=== PATIENT | male | born 1955 | race African-American/Black ===

== ENCOUNTER 2021-11-30 07:22 | Inpatient (IN) | payer MEDICARE, MEDICAID ==
[~2021-11-30] VITALS: Ht 175.3 cm; Wt 56.7 kg
[2021-11-30 09:11] LABS: BASOPHILS % 0.5 % (0.0-2.0); EOSINOPHILS % 2.6 % (0.0-5.0); HEMATOCRIT. 33.2 % (42.0-52.0); HEMOGLOBIN. 10.8 g/dL (14.0-18.0); LYMPHOCYTES % 11.5 % (20.0-50.0); MEAN CORPUSCULAR HEMOGLOBIN 26.6 pg (28.0-32.0); MEAN CORPUSCULAR VOLUME 82.1 fL (80.0-94.0); MEAN PLATELET VOLUME 8.2 fl (7.4-10.4); MONOCYTES % 8.9 % (2.0-8.0); NEUTROPHILS % 76.5 % (40.0-76.0); PLATELET 625 x1000/uL (130-400); RED BLOOD CELL COUNT 4.05 mill/uL (4.7-6.1); RED CELL DISTRIBUTION WIDTH 14.8 % (11.6-14.6)
[2021-11-30 09:19] LABS: CHLORIDE 104 mEq/L (98-107)
[2021-11-30] MEDS ORDERED: DILTIAZEM HCL 60MG TABLET PO ONE (10:15)
[2021-11-30] MEDS ORDERED: DILTIAZEM HCL 5MG/ML 5ML VIAL IV ONE (10:15)
[2021-11-30] MEDS ORDERED: SODIUM CHLORIDE 0.9% 1,000 ML IV ONE (10:15)
[2021-11-30] MEDS ORDERED: DIGOXIN 500MCG/2ML AMP IV NR (15:00)
[2021-11-30] MEDS ORDERED: ONDANSETRON HCL 4MG/2ML INJ IV PRN (15:00)
[2021-11-30] MEDS ORDERED: ACETAMINOPHEN 325MG TABLET PO PRN (15:00)
[2021-11-30 15:43] LABS: INR 1.1; PROTHROMBIN TIME 11.9 sec (9.6-11.0)
[2021-11-30] MEDS: ENOXAPARIN 60MG/0.6ML SYR SUBCUT SCH (18:26)
[2021-11-30 20:00] VITALS: BP 111/61
[2021-11-30 20:56] VITALS: BP 111/61
[2021-11-30] MEDS ORDERED: PNEUMOCOCCAL 23-VAL P-SAC VAC 0.5 ML IM ONE (22:30)
[2021-12-01] VITALS: BP 103/58
[2021-12-01 04:00] VITALS: BP 106/62
[2021-12-01] MEDS: ENOXAPARIN 60MG/0.6ML SYR SUBCUT SCH (05:40)
[2021-12-01 08:12] VITALS: BP 105/62
[2021-12-01 08:53] LABS: *AMPHETAMINES SCREEN URINE NEGATIVE (NEGATIVE)
[2021-12-01 08:54] LABS: *BARBITURATES SCREEN URINE NEGATIVE (NEGATIVE); *BENZODIAZEPINES SCREEN URINE NEGATIVE (NEGATIVE); *COCAINE SCREEN URINE NEGATIVE (NEGATIVE); METHADONE URINE SCREEN NEGATIVE (NEGATIVE); OPIATES URINE SCREEN NEGATIVE (NEGATIVE)
[2021-12-01 08:55] LABS: CANNABINOID URINE SCREEN NEGATIVE (NEGATIVE); PHENCYCLIDINE URINE SCREEN NEGATIVE (NEGATIVE)
[2021-12-01] MEDS ORDERED: METOPROLOL TARTRATE 25MG TABLET PO SCH (11:45)
[2021-12-01 11:53] VITALS: BP 106/64
[2021-12-01] MEDS ORDERED: METO25TA6 MT (12:07)
[2021-12-01 12:20] VITALS: BP 106/64
== END 2021-12-01 15:35 | disposition home or self-care (01) | DRG 308 ==
LOC: ER 07:22 → MICUSO 12:35 → EDBEDREQ 12:41 → EDBEDREQTM 12:41 → 5WST 21:07
PROVIDERS: ADMIT Internal Medicine; ATTEND Internal Medicine
DX: I48.91 Unspecified atrial fibrillation (principal); E43 Unspecified severe protein-calorie malnutrition; Z68.1 Body mass index [BMI] 19.9 or less, adult; R55 Syncope and collapse; D64.9 Anemia, unspecified; I10 Essential (primary) hypertension; J44.9 Chronic obstructive pulmonary disease, unspecified; Z85.819 Personal history of malignant neoplasm of unspecified site of lip, oral cavity, and pharynx
CPT/HCPCS: 36415; 71045; 80053; 80305; 83880; 84439; 84443; 84484; 85025; 93005; 93306; 99291; J1160; J1650; J3490; J7030